=== PATIENT | male | born 1945 | race Caucasian/White ===

== ENCOUNTER 2022-01-29 17:51 | Emergency (ER) | payer MEDICARE, OTHER, SELFPAY ==
[2022-01-29 17:55] VITALS: BP 130/64; PULSE 62; RESP 18; TEMP 37; O2SAT 98; BMI 28.3
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
[2022-01-29 18:28] LABS: Absolute Lymphocyte Count 1.98 X10^3/uL (0.83-4.51); Absolute Neutrophil Count 5.8 X10^3/uL (2.0-7.7); Basophil# 0.07 X10^3/uL; Basophil% 0.8 % (0-1); Eosinophil# 0.21 X10^3/uL; Eosinophils% 2.5 % (0-5); Hematocrit 47.8 % (40-54); Hemoglobin 15.4 g/dL (13.0-16.5); Lymphocyte # 1.98 X10^3/ul (0.83-4.51); Lymphocyte % 23.2 % (19-41); Mean Corp Hgb Conc 32.2 g/dL (32-36); Mean Corpuscular Hgb 30.1 pg (27.0-32.0); Mean Corpuscular Volume 93.4 fL (80-94); Monocyte# 0.41 X10^3/uL; Monocyte% 4.8 % (0-10); NRBC Flagged by Analyzer 0 % (0-5); Neutrophil # 5.77 X10^3/uL (2.7-7.7); Neutrophil % 67.6 % (47-70); Platelet Count 188 K/mm3 (150-450); RBC Distribution Width CV 13.1 % (11.6-14.6); RBC Distribution Width SD 44.5 fl (35.1-43.9); Red Blood Count 5.12 M/mm3 (4.6-6.2); White Blood Count 8.5 K/mm3 (4.4-11.0)
[2022-01-29] MEDS: fentaNYL 100 MCG/2 ML Ampul 25 MCG IV (18:31)
[2022-01-29 18:36] LABS: International Normalized Ratio 1.1; Prothrombin Time (Protime)PT. 13.7 SECONDS (11.7-14.9)
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
[2022-01-29 18:37] LABS: Partial Thromboplast Time 27.3 Seconds (24.1-36.2)
[2022-01-29 18:54] LABS: AST(SGOT) 35 U/L (15-37); Alanine Aminotransfer ALT/SGPT 32 U/L (16-61); Albumin, Serum 3.5 g/dL (3.2-5.0); Alkaline Phosphatase 66 U/L (45-117); Anion Gap 6 (5-15); BUN 21 mg/dL (7-18); BUN/Creat Ratio 16.5 RATIO (10-20); Bilirubin, Direct 0.18 mg/dL (0.00-0.30); Calcium,Total 9.2 mg/dL (8.5-10.1); Chloride 107 mmol/L (98-107); Creatinine, Serum 1.27 mg/dL (0.70-1.30); EST Glomerular Filtration Rate 59 mL/min (>60); Est Glom Filt Rate - Afr Amer 71 mL/min (>60); Estimated Creatinine Clearance 56.01 ml/min; Globulin 3.5 g/dL (2.2-4.2); Glucose 112 mg/dL (74-106); Potassium 4.1 mmol/L (3.5-5.1); Sodium Level 140 mmol/L (136-145)
[2022-01-29 19:09] VITALS: O2SAT 94
[2022-01-29 19:29] VITALS: BP 126/74; PULSE 58; RESP 20; O2SAT 94
[2022-01-29] MEDS: Morphine 4 MG/ML Syringe IV (20:18)
[2022-01-29] MEDS: Ondansetron 4 MG/2 ML Vial IV (20:18)
--- NOTE | 2022-01-29 20:18 | NURSING ---
CALLED PHYSICIANS AT 818PM 30-40 MIN ETA
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
[2022-01-29] MEDS: 0.9% Normal Saline 1,000 ML 125 ML IV (20:41)
[2022-01-29 20:47] VITALS: BP 126/74; PULSE 58; RESP 18; O2SAT 98
== END 2022-01-29 20:54 | disposition short-term general hospital (02) ==
PROVIDERS: Emergency Provider Emergency Medicine; Visit Provider Emergency Medicine
DX: S22.089A Unspecified fracture of T11-T12 vertebra, initial encounter for closed fracture (principal); S22.31XA Fracture of one rib, right side, initial encounter for closed fracture; V49.40XA Driver injured in collision with unspecified motor vehicles in traffic accident, initial encounter; Y92.410 Unspecified street and highway as the place of occurrence of the external cause; E78.00 Pure hypercholesterolemia, unspecified; N40.0 Benign prostatic hyperplasia without lower urinary tract symptoms; F17.210 Nicotine dependence, cigarettes, uncomplicated
CPT/HCPCS: 70450; 71045; 71260; 72125; 74176; 80048; 80076; 85025; 85610; 85730; 96374; 96375; 99285; J7030; Q9967; A4216; J2405